=== PATIENT | female | born 1985 | race Caucasian/White ===

== ENCOUNTER 2017-07-20 05:37 | Inpatient (IN) | payer MEDICAID ==
[~2017-07-20] VITALS: Ht 167.6 cm; Wt 130.0 kg
[2017-07-20] MEDS ORDERED: OXYTOCIN 30U/ 0.9% NaCL 500ML 500 ML IV SCH (05:40)
[2017-07-20] MEDS ORDERED: LACTATED RINGERS 1,000 ML IV SCH ×3 (05:40→07:32)
[2017-07-20] MEDS ORDERED: CEFAZOLIN PMX 1GM/50ML 50 ML IVPB ONE (06:00)
[2017-07-20] MEDS ORDERED: ONDANSETRON 2MG/ML, 2ML IVPush ONE (06:00)
[2017-07-20] MEDS ORDERED: LACTATED RINGERS 1,000 ML IVBOLUS ONE (06:00)
[2017-07-20] MEDS ORDERED: PLEASE ENTER ALLERGIES MC SCH ×2 (06:00)
[2017-07-20] MEDS ORDERED: METOCLOPRAMIDE 5 MG/ML, 2ML IV ONE (06:00)
[2017-07-20] MEDS ORDERED: SODIUM CITRATE/CITRIC ACID 30 ML UDC PO ONE (06:00)
[2017-07-20] MEDS ORDERED: CALCIUM CARBONATE 500 MG TAB.CHEW PO PRN ×2 (06:00→08:00)
[2017-07-20 06:17] LABS: HEMATOCRIT 36.1 % (34.6-47.8); HEMOGLOBIN 12.2 g/dL (11.7-16.4); WHITE BLOOD COUNT 10.3 x10^3/uL (3.4-10)
[2017-07-20] MEDS ORDERED: NEWBORN KIT ONE (06:28)
[2017-07-20] MEDS ORDERED: SODIUM CITRATE/CITRIC ACID 30 ML UDC ONE (06:28)
[2017-07-20] MEDS ORDERED: METOCLOPRAMIDE 5 MG/ML, 2ML ONE (06:28)
[2017-07-20] MEDS ORDERED: OXYTOCIN 30U/ 0.9% NaCL 500ML 500 ML ONE (06:28)
[2017-07-20 06:33] VITALS: BP 119/63
[2017-07-20] MEDS ORDERED: morphine SULFATE/PF 1 MG/ML, 10ML ONE (07:21)
[2017-07-20] MEDS: LACTATED RINGERS 1,000 ML IV SCH ×2 (07:32→17:32)
[2017-07-20] MEDS: OXYTOCIN 30U/ 0.9% NaCL 500ML 500 ML IV SCH ×2 (07:32→17:32)
[2017-07-20] MEDS ORDERED: CEFAZOLIN 1,000 MG ONE ×2 (07:58→07:59)
[2017-07-20] MEDS ORDERED: PHENYLEPHRINE 10 MG/ML ONE (07:58)
[2017-07-20] MEDS ORDERED: SUCCINYLCHOLINE 20 MG/ML, 10ML ONE (07:58)
[2017-07-20] MEDS ORDERED: OXYTOCIN 10 UNITS/ML, 1ML ONE (07:58)
[2017-07-20] MEDS ORDERED: LIDOCAINE-MPF 2% ,5ML ONE (07:58)
[2017-07-20] MEDS ORDERED: BUPIVACAINE/PF 0.25% ONE (07:58)
[2017-07-20] MEDS ORDERED: WATER-INJECTION,STERILE 10 ML IV ONE ×2 (07:58)
[2017-07-20] MEDS ORDERED: GLYCOPYRROLATE 0.4 MG/2 ML, 2ML ONE (07:58)
[2017-07-20] MEDS ORDERED: EPHEDRINE 50 MG/ML, 1ML ONE (07:58)
[2017-07-20] MEDS ORDERED: ROCURONIUM 10MG/ML,5ML ONE (07:58)
[2017-07-20] MEDS ORDERED: PROPOFOL 10 MG/ML, 20ML ONE (07:58)
[2017-07-20] MEDS ORDERED: MISOPROSTOL 200 MCG TABLET PR PRN (08:00)
[2017-07-20] MEDS ORDERED: morphine SULFATE 10 MG/ML, 1ML IVPush PRN ×2 (08:00)
[2017-07-20] MEDS ORDERED: ACETAMINOPHEN 325 MG TABLET PO PRN ×2 (08:00)
[2017-07-20] MEDS ORDERED: ONDANSETRON 2MG/ML, 2ML IV PRN (08:00)
[2017-07-20] MEDS ORDERED: RHOGAM FROM BLOOD BANK 1 NOTE EA IM/IV ONE (08:00)
[2017-07-20] MEDS ORDERED: SIMETHICONE 80 MG CHEW TAB PO PRN (08:00)
[2017-07-20] MEDS ORDERED: MEASLES,MUMPS&RUBELLA VACC/PF 0.5 ML SQ-VACC PRN (08:00)
[2017-07-20] MEDS ORDERED: ONDANSETRON 2MG/ML, 2ML ONE (08:17)
[2017-07-20] MEDS: PRENATAL VIT/IRON/FA 1 EACH TABLET PO SCH (09:00)
[2017-07-20] MEDS ORDERED: KETOROLAC 30 MG/1 ML ONE (09:24)
[2017-07-20] MEDS: KETOROLAC 30 MG/1 ML IV SCH ×3 (09:25→22:50)
[2017-07-20 10:05] VITALS: BP 111/62
[2017-07-20 17:05] VITALS: BP 108/56
[2017-07-20 17:09] LABS: HEMATOCRIT 33.2 % (34.6-47.8); WHITE BLOOD COUNT 13.4 x10^3/uL (3.4-10)
[2017-07-20 19:40] VITALS: BP 118/62
[2017-07-20] MEDS: DOCUSATE 100 MG CAPSULE PO PRN (22:49)
[2017-07-21 00:45] VITALS: BP 108/45
[2017-07-21] MEDS: OXYTOCIN 30U/ 0.9% NaCL 500ML 500 ML IV SCH ×3 (03:32→23:32)
[2017-07-21] MEDS: LACTATED RINGERS 1,000 ML IV SCH ×3 (03:32→23:32)
[2017-07-21 04:21] VITALS: BP 105/55
[2017-07-21] MEDS: KETOROLAC 30 MG/1 ML IV SCH ×3 (04:53→17:04)
[2017-07-21 07:35] VITALS: BP 101/55
[2017-07-21] MEDS: OXYcodone/APAP 5/325MG TABLET PO PRN ×4 (09:01→23:12)
[2017-07-21] MEDS: DOCUSATE 100 MG CAPSULE PO PRN ×2 (09:01→23:12)
[2017-07-21] MEDS: PRENATAL VIT/IRON/FA 1 EACH TABLET PO SCH (09:01)
[2017-07-21 12:36] VITALS: BP 113/59
[2017-07-21 20:00] VITALS: BP 122/69
[2017-07-21] MEDS: IBUPROFEN 600 MG TABLET PO PRN (23:12)
[2017-07-22] MEDS: LACTATED RINGERS 1,000 ML IV SCH (00:19)
[2017-07-22] MEDS: OXYTOCIN 30U/ 0.9% NaCL 500ML 500 ML IV SCH (00:20)
[2017-07-22] MEDS: OXYcodone/APAP 5/325MG TABLET PO PRN ×2 (05:17→10:20)
[2017-07-22] MEDS: IBUPROFEN 600 MG TABLET PO PRN ×2 (05:17→10:20)
[2017-07-22 09:00] VITALS: BP 117/75
[2017-07-22] MEDS: DOCUSATE 100 MG CAPSULE PO PRN (10:20)
[2017-07-22] MEDS: PRENATAL VIT/IRON/FA 1 EACH TABLET PO SCH (10:20)
[2017-07-22] MEDS ORDERED: OXYC-302 PO (10:50)
[2017-07-22] MEDS ORDERED: DOCU-131 PO (10:51)
[2017-07-22] MEDS ORDERED: IBUP-1222 PO (10:51)
== END 2017-07-22 12:50 | disposition home or self-care (01) | DRG 766 ==
LOC: LDIP 05:37 → 2NW 10:08
PROVIDERS: ADMIT Obstetrics & Gynecology; ATTEND Obstetrics & Gynecology
PROC: 10D00Z1 Extraction of Products of Conception, Low, Open Approach (ICD-10-PCS; principal; 2017-07-20)
PROC: 0UB70ZZ Excision of Bilateral Fallopian Tubes, Open Approach (ICD-10-PCS; 2017-07-20)
DX: O34.211 Maternal care for low transverse scar from previous cesarean delivery (principal); O69.81X0 Labor and delivery complicated by cord around neck, without compression, not applicable or unspecified; Z37.0 Single live birth; Z30.2 Encounter for sterilization; Z3A.39 39 weeks gestation of pregnancy
CPT/HCPCS: 36415; 85025; 86850; 86900; 88302; J0690; J1885; J2274; J2405; J2704; J3490; J0330; J2370; J2590; J2765; J7120